=== PATIENT | male | born 1940 | race Caucasian/White ===

== ENCOUNTER 2016-09-13 14:38 | Emergency (ER) | payer MEDICARE, BC ==
--- NOTE | 2016-09-13 21:00 | CT ---
CT ABDOMEN AND PELVIS WITHOUT CONTRAST 09/13/[address] of the abdomen and pelvis was performed for evaluation of abdominal tenderness and elevate d liver enzymes. Axial slices were acquired, then coronal reconstructions were done. There is considerable basilar atelectasis in the lower lobes, but no lobar consolidation or effusion was seen. The liver was unremarkable in appearance within the limitations of a noncontrast scan. It was not en larged, nor where there any dilated ducts or space occupying lesions. A tiny calcification or two is seen within the liver. The spleen is not enlarged. The pancreas and adrenal glands showed no acute findings. There are multiple large renal cysts bilaterally, something that has been seen previously via ultrasounds. The largest in the right kidney is 9.5 cm in size and the largest in the left kidne y is 5.5 cm. Calcification seen within each kidney are most likely vascular in nature. I cannot rule out a tiny nonobstructing calculus or two, however. The abdominal aorta is calcified and tortuous. There is a very minimal infrarenal abdominal aortic aneurysm measuring 3.4 cm in diameter. There is dense calcification and mild ectasia of the iliac arteries. The bowel is nondistended. There is abundant fecal material in bowel but no signs of obstruction. No inflammatory changes are seen around bowel. No free air or free fluid was seen. CT of the pelvis shows no pelvic masses, fluid collections, or other acute changes. Degenerative shyann nges are seen in the patient's lumbar spine. IMPRESSION: 1. Basilar atelectasis. 2. No acute findings in the liver. 3. Numerous renal cysts bilaterally. 4. Small infrarenal aortic aneurysm. POS: HOME
== END 2016-09-13 15:37 ==
LOC: BURERS 14:38
DX: R74.8 Abnormal levels of other serum enzymes (principal); I10 Essential (primary) hypertension; Z87.891 Personal history of nicotine dependence; Z79.891 Long term (current) use of opiate analgesic; Z79.899 Other long term (current) drug therapy; Z79.2 Long term (current) use of antibiotics
CPT/HCPCS: 74176; 80074

== ENCOUNTER 2016-09-18 08:57 | Outpatient (CLI) | payer MEDICARE, BC ==
--- NOTE | 2016-09-19 10:21 | ULT ---
RIGHT UPPER QUADRANT ULTRASOUND: 09/18/16 Ultrasonography of the right upper quadrant was performed in this patient with abnormal liver functi on test. The liver is perhaps borderline in size measuring 16.2 cm in oblique sagittal length, but internally , no focal lesions were seen. There are no dilated ducts. Portal venous flow was towards the liver a s expected. The gallbladder contained no signs of stones or wall thickening. There could be a small amount of sludge within it, but this also could just be spurious echoes. The common bile duct was me asured at 6 mm in caliber which is borderline. The pancreas was largely obscured by gas, as was the aorta. The right kidney was 14.6 cm in length with no hydronephrosis. Large cyst is associated with it measuring 8.5 cm in diameter. There may be a little bit of debris in the cyst, but no septations or gross solid elements. IMPRESSION: No acute right upper quadrant findings. No focal hepatic findings. POS: HOME
== END 2016-09-18 08:58 | disposition home or self-care (01) ==
LOC: BURULT 08:57
PROVIDERS: ATTEND Clinical Nurse Specialist Medical-Surgical
DX: R94.5 Abnormal results of liver function studies (principal); R74.8 Abnormal levels of other serum enzymes
CPT/HCPCS: 76705

== ENCOUNTER 2018-07-14 03:05 | Emergency (ER) | payer MEDICARE, BC ==
[2018-07-14] MEDS ORDERED: Piperacillin/Tazobactam 3.375 GM VIAL ONE (03:17)
[2018-07-14 03:32] LABS: Mean Corpuscular HGB CONC 34.4 g/dL (32.0-36.0); Mean Corpuscular Hemoglobin 30.5 pg (27.0-31.0); Mean Corpuscular Volume 88.7 fL (78.0-98.0); Mean Platelet Volume 12.3 fL (7.4-10.4); Platelet Count 170 thou/uL (130-400); Red Blood Cell (RBC) Count 4.27 mill/uL (4.70-6.10); White Blood Cell (WBC) Count 6.1 thou/uL (4.8-10.8)
[2018-07-14 03:35] LABS: INR-International Normal Ratio 1.2; PTT 31.5 SEC (22.9-36.1); Prothrombin Time 15.1 SEC (12.0-14.7)
[2018-07-14 03:40] LABS: ALT (SGPT) 23 U/L (8-55); AST (SGOT) 23 U/L (5-34); Albumin 3.8 g/dL (3.4-4.8); Alkaline Phosphatase 100 U/L (40-150); Anion Gap 15 mmol/L (10-20); BUN (Urea Nitrogen) 38 mg/dL (8.4-25.7); Bilirubin, Total 1.3 mg/dL (0.2-1.2); Calc. Creatinine Clearance 0 mL/min (70-130); Calcium 9.8 mg/dL (7.8-10.44); Carbon Dioxide 25 mmol/L (23-31); Chloride 104 mmol/L (98-107); Estimated GFR-MDRD 72; Globulin 4.1 g/dL (2.4-3.5); Glucose 165 mg/dL (83-110); Protein, Total 7.9 g/dL (5.8-8.1); Sodium 140 mmol/L (136-145)
[2018-07-14 03:45] LABS: Clarity Hazy (Clear); Specific Gravity, Urine 1.021 (1.002-1.036)
[2018-07-14 03:46] LABS: Bilirubin Negative (Negative); Blood, Urine Negative (Negative); Glucose, Urine (Dipstick) Negative (Negative); Leukocyte Negative (Negative); Nitrite Negative (Negative); Protein, Urine (Dipstick) 30 mg/dL (Neg-Trace); Urobilinogen 0.2 mg/dL (0.2-1.0)
[2018-07-14 03:52] LABS: Band 15 % (5-11); Dohle Bodies SLIGHT; Lymphocytes 9 % (21-51); MDiff Complete? YES; Monocytes 10 % (0-10); Neutrophil 65 % (42-75); PLT Morphology Comment Appears Adequate; RBC Morphology Normal
[2018-07-14] MEDS ORDERED: Ketorolac Tromethamine 30 MG/ML VIAL ONE (03:52)
[2018-07-14 03:55] LABS: Bacteria/HPF 1+ HPF (None Seen); Crystals/HPF 1+ AMORPH URATES HPF (Negative); Hyaline Casts/LPF 4-6 HYALINE CAST LPF (0-3 Hyaline); RBC/HPF 0-3 HPF (0-3); Squamous Epithelial 0-3 HPF (0-3); WBC/HPF 0-3 HPF (0-3)
[2018-07-14 03:56] LABS: CKMB 1.6 ng/mL (0-6.6)
--- NOTE | 2018-07-14 08:35 | CT ---
PRELIMINARY REPORT/[facility]/EMERGENCY AFTER HOURS PROCEDURE: EXAM: CT Abdomen and Pelvis Without Contrast EXAM DATE/TIME: 07/14/2018 3:38 AM CLINICAL HISTORY: 77 years old, male; Pain and abnormal findings; Abnormal radiologic finding of the abdomen; Radiologi c exam and body structure: Pcxr; Abdominal pain; Generalized; Patient HX: HX of bowel obstruction, HX of stroke, septic TECHNIQUE: Axial computed tomography images of the abdomen and pelvis without contrast. All CT scans at this [facility] use at least one of these dose optimization techniques: automated exposure control; mA and/or k V adjustment per patient size (includes targeted exams where dose is matched to clinical indication); or iterative reconstruction. Coronal and sagittal reformatted images were created and reviewed. COMPARISON: No relevant prior studies available. FINDINGS: Lower thorax: There is interstitial thickening at the lung bases suggestive of pulmonary edema. ABDOMEN: Liver: The liver is within normal limits for this noncontrast study. Gallbladder and bile ducts: The gallbladder is contracted but otherwise normal. Pancreas: The pancreas appears normal. No ductal dilatation. Spleen: The spleen is normal. Adrenals: The adrenal glands are normal. Kidneys and ureters: There are multiple simple renal cysts. Largest cyst measures approximately 8 cm extending exophytically from the RIGHT kidney. Stomach and bowel: A gastrostomy tube enters the stomach. There is marked gaseous distention of the c olon, nonspecific but compatible with colonic ileus. There is collapse of the distal sigmoid colon wi thout evidence of volvulus. Appendix: No evidence of appendicitis. PELVIS: Bladder: The bladder is decompressed by a Robertson catheter but is otherwise normal. There is a small am ount of intraluminal air consistent with instrumentation. Reproductive: Unremarkable as visualized. ABDOMEN and PELVIS: Intraperitoneal space: Normal. No free air. No significant fluid collection. Bones/joints: The spine demonstrates moderate degenerative changes at multiple levels. Soft tissues: Unremarkable. Vasculature: The vasculature demonstrates diffuse moderate atherosclerotic calcification. Lymph nodes: Normal. No enlarged lymph nodes. IMPRESSION: There is marked gaseous distention of the colon, compatible with colonic ileus. Thank you for allowing us to participate in the care of your patient. Dictated and Authenticated by: James Lantigua MD 07/14/2018 4:26 AM Central Time ([place] & [place]) FINAL REPORT CT ABDOMEN AND PELVIS WITHOUT CONTRAST: Date: 07/14/[address] of the abdomen and pelvis was done without oral or IV contrast. Axial slices were acquired, then coronal reconstructions were done. The lung bases show interstitial thickening, which is probably a combination of chronic fibrotic thic kening plus some mild pulmonary edema. A little bronchiectasis is suggested in the left lower lobe. T here is some increased infiltrate in the right posterior costophrenic angle which may be dependent at electasis or even an early pneumonia, but the latter is not certain. The liver, spleen, pancreas, and adrenal glands are unremarkable within limitations of a noncontrast study. Multiple exophytic cysts are seen arising from each kidney, something that has been present on many prior exams. The largest is in the left kidney and measures nearly 11 cm in size. Vascular calc ifications are seen associated with the kidneys. The abdominal aorta is ectatic and there is a very m ild aneurysmal dilation of the distal abdominal aorta just above the bifurcation. It measures 3.5 cm in transverse diameter. The iliac arteries are ectatic as well. There is prominent distention of colon in this patient without organization of the loops. The distal colon is somewhat decompressed and there is some mild dilation of the rectum with an air fluid level. There is no distention of small bowel. Findings seem a bit more in keeping with a prominent colonic ileus than a gabriel obstruction. Dilated bowel has been seen previously in this patient looking at old scans. No free air or free fluid seen. No bowel wall thickening present. CT of the pelvis was remarkable only for what has already been listed above. The urinary bladder is d ecompressed by a Robertson catheter. Degenerative changes are present throughout the spine. IMPRESSION: 1. Moderate colonic distention with gas, without clear organization of loops. The findings are thoug ht to be more compatible with a colonic ileus than gabriel obstruction. Follow-up may be needed. 2. Basilar interstitial infiltrates, presumably a combination of edema and chronic thickening. See a meghan. 3. Small (3.5 cm wide) distal abdominal aortic aneurysm. Findings in agreement with preliminary reading by Maryann. POS: HOME
--- NOTE | 2018-07-14 09:04 | RAD ---
PORTABLE CHEST: DATE: 07/14/2018. FINDINGS: An AP portable film at 0347 was done after placement of an NG tube. The tube appears to take an appr opriate course towards the stomach with the tip curled in the region of the fundus. Again noted are congestive changes throughout the lungs, mild cardiomegaly, and moderate distention of bowel. IMPRESSION: Adequate placement of nasogastric tube. POS: HOME
--- NOTE | 2018-07-14 09:14 | RAD ---
PORTABLE CHEST: DATE: 07/14/2018. FINDINGS: Comparison is made with the prior study of 03/01/2018. The heart is mildly enlarged. There is some congestion of vessels. There is a little increased dens ity in the right base, but I believe this is just crowding of markings. The patient appears to have some mildly distended loops of bowel beneath the diaphragm, including some between the liver and the right diaphragm. There are surgical clips seen along the left lateral chest wall. IMPRESSION: Mild congestive change. POS: HOME
== END 2018-07-14 04:20 | disposition short-term general hospital (02) ==
LOC: BURERS 03:05
DX: A41.9 Sepsis, unspecified organism (principal); J18.9 Pneumonia, unspecified organism; K56.609 Unspecified intestinal obstruction, unspecified as to partial versus complete obstruction; I10 Essential (primary) hypertension; Z86.73 Personal history of transient ischemic attack (TIA), and cerebral infarction without residual deficits; K21.9 Gastro-esophageal reflux disease without esophagitis; D64.9 Anemia, unspecified; E78.5 Hyperlipidemia, unspecified; F03.90 Unspecified dementia, unspecified severity, without behavioral disturbance, psychotic disturbance, mood disturbance, and anxiety; Z87.891 Personal history of nicotine dependence; Z79.899 Other long term (current) drug therapy
CPT/HCPCS: 51702; 71045; 74176; 80053; 81003; 81015; 82553; 83605; 83880; 84484; 85025; 85610; 85730; 87040; 87086; 87149; 93005; 96365; 96368; 96375; J1885; J2543; J3370